=== PATIENT | female | born 1995 | race Caucasian/White ===

== ENCOUNTER → 2017-08-21 | Outpatient (CLI) | payer OTHER ==
--- NOTE | 2017-08-21 14:03 | DIAGNOSTIC IMAGING REPORT ---
PELVIC COMPLETE NON OB CLINICAL HISTORY: 21 years-old Female presenting with PELVIC PAIN, LLQ PAIN, last menstrual. 08/13/2017. TECHNIQUE: Real-time grayscale and color and spectral Doppler ultrasound imaging of the pelvis was performed using a transabdominal probe. COMPARISON: None. FINDINGS: Uterus: Normal. Anteverted. The uterus measures 7.1 x 4.0 x 3.1 cm. Endometrial stripe measures 3 mm in thickness. Endometrium normal-appearing. Cervix normal. Right adnexa: Right ovary normal. Right ovary measures 3.6 x 1.7 x 2.3 cm. Normal color Doppler flow and arterial and venous waveforms within the ovarian parenchyma. Left adnexa: Left ovary normal. Left ovary measures 2.5 x 2.4 x 1.6 cm. Normal color Doppler flow and arterial and venous waveforms within the ovarian parenchyma. Other: No free fluid. IMPRESSION: No significant abnormality identified within the pelvis. Electronically signed by: Mason Begum M.D. 08/21/2017 2:02 PM Dictated Date/Time: 08/21/2017 2:00 PM
== END | disposition home or self-care (01) ==
LOC: C.ULTR 13:29
PROVIDERS: ATTEND Internal Medicine
DX: R10.2 Pelvic and perineal pain (principal); R10.32 Left lower quadrant pain